=== PATIENT | male | born 2000 | race Two or more races ===

== ENCOUNTER 2018-07-24 01:17 | Observation (INO) | payer BC ==
[2018-07-24] MEDS ORDERED: Thiamine 100 MG in Sodium Chloride 0.9% 100 ML IV ONE (01:52)
--- NOTE | 2018-07-24 01:52 | EDM.PDOC ---
ED HPI GENERAL MEDICAL PROBLEM - General Stated Complaint: INTOXICATION Time Seen by Provider: 07/24/18 01:48 Source of Information: Reports: Other (Friend) History Limitations: Reports: Altered Mental Status - History of Present Illness INITIAL COMMENTS - FREE TEXT/NARRATIVE: 18-year-old male that was brought in by ambulance after he was found passed out in college. He was apparently visiting a friend, and took an abnormal amount of tequila and beer, more than usual,passing out in the process. The EMT report that he was intermittently combative en route. There is no report of any drug use. According to the friend, skies typically healthy with no active medical problems. - Related Data Allergies Allergy/AdvReac Type Severity Reaction Status Date / Time Unable to Assess Allergy Unverified 07/24/18 03:46 Home Meds: Home Meds . [Unable to Verify Home Med List] 07/24/18 [History] ED ROS GENERAL - Review of Systems Review Of Systems: ROS reveals no pertinent complaints other than HPI. - Physical Exam Exam: See Below Exam Limited By: Altered Mental Status General Appearance: Obtunded Eye Exam: Bilateral Eye: PERRL (pin point) Ears: Normal External Exam Nose: Normal Inspection, Normal Mucosa, No Blood Throat/Mouth: Normal Inspection, Normal Lips, Normal Teeth, Normal Gums, Normal Oropharynx, Normal Voice, No Airway Compromise Head Exam: Atraumatic, Normocephalic Neck: Normal Inspection Respiratory/Chest: No Respiratory Distress Cardiovascular: Normal Peripheral Pulses GI/Abdominal: Normal Bowel Sounds Course - Vital Signs Last Recorded V/S: Last Vital Signs Temp 97.1 F 07/24/18 02:50 Pulse 83 07/24/18 02:30 Resp 17 07/24/18 06:00 BP 103/49 L 07/24/18 06:00 Pulse Ox 96 07/24/18 06:00 - Orders/Labs/Meds Orders: Medication Orders Sodium Chloride (Normal Saline) 1,000 mls @ 125 mls/hr IV ASDIRECTED SUNDAR Last Admin: 07/24/18 04:15 Dose: 125 mls/hr Lorazepam (Ativan) 1 mg IVPUSH Q4H PRN PRN Reason: Agitation Labs: Laboratory Tests 07/24/18 07/24/18 07/24/18 Range/Units 01:30 01:30 01:30 WBC 6.8 (4.5-12.0) X10-3/uL RBC 5.03 (4.30-5.75) x10(6)uL Hgb 14.1 (11.5-15.5) g/dL Hct 43.4 (30.0-51.3) % MCV 86.3 (80-96) fL MCH 28.0 (27.7-33.6) pg MCHC 32.4 (32.2-35.4) g/dL RDW 12.8 (11.5-15.5) % Plt Count 314 (125-369) X10(3)uL MPV 7.5 (7.4-10.4) fL Neut % (Auto) 58.3 (46-82) % Lymph % (Auto) 32.4 (13-37) % Bradley % (Auto) 8.0 (4-12) % Eos % (Auto) 1 (1.0-5.0) % Baso % (Auto) 0 (0-2) % Neut # (Auto) 4.0 (1.6-8.3) # Lymph # (Auto) 2.2 (0.6-5.0) # Bradley # (Auto) 0.5 (0.0-1.3) # Eos # (Auto) 0.1 (0.0-0.8) # Baso # (Auto) 0.0 (0.0-0.2) # Sodium 137 (135-145) mmol/L Potassium 3.4 L (3.5-5.3) mmol/L Chloride 103 (100-110) mmol/L Carbon Dioxide 25 (21-32) mmol/L BUN 10 (7-18) mg/dL Creatinine 0.8 (0.70-1.30) mg/dL Est Cr Clr Drug Dosing 176.04 mL/min Estimated GFR (MDRD) > 60 (>60) BUN/Creatinine Ratio 12.5 (9-20) Glucose 146 H (80-116) mg/dL Calcium 8.5 L (8.6-10.2) mg/dL Magnesium 1.8 (1.8-2.5) mg/dL Total Bilirubin 0.2 (0.1-1.3) mg/dL AST 26 H (5-25) IU/L ALT 69 H (12-36) U/L Alkaline Phosphatase 74 (56-112) IU/L Creatine Kinase 365 H* (60-160) IU/L Total Protein 7.2 (6.0-8.0) g/dL Albumin 3.8 (3.5-5.2) g/dL Globulin 3.4 g/dL Albumin/Globulin Ratio 1.1 Ethyl Alcohol 0.25 H* (<0.03) % Meds: Medications Generic Name Dose Route Start Last Admin Trade Name Freq PRN Reason Stop Dose Admin Sodium Chloride 1,000 mls @ 125 mls/hr 07/24/18 02:00 07/24/18 04:15 Normal Saline IV 125 mls/hr ASDIRECTED SUNDAR Administration Lorazepam 1 mg 07/24/18 02:10 Ativan IVPUSH Q4H PRN Agitation Discontinued Medications Generic Name Dose Route Start Last Admin Trade Name Freq PRN Reason Stop Dose Admin Thiamine HCl 100 mg/ Sodium 101 mls @ 202 mls/hr 07/24/18 01:52 07/24/18 02: 27 Chloride IV 07/24/18 01:53 202 mls/hr ONETIME ONE Administration Sodium Chloride 1,000 mls @ 999 mls/hr 07/24/18 02:00 07/24/18 02:00 Normal Saline IV 07/24/18 03:00 999 mls/hr ONETIME ONE Administration Sodium Chloride 1,000 mls @ 999 mls/hr 07/24/18 03:14 07/24/18 03:15 Normal Saline IV 07/24/18 04:14 999 mls/hr ONETIME ONE Administration Departure - Departure Time of Disposition: 02:08 Disposition: Refer to Observation Clinical Impression: Alcohol intoxication Qualifiers: Complication of substance-induced condition: with unspecified complication Qualified Code(s): F10.929 - Alcohol use, unspecified with intoxication, unspecified - Discharge Information - Problem List & Annotations (1) Alcohol intoxication SNOMED Code(s): 18458781 Code(s): F10.929 - ALCOHOL USE, UNSPECIFIED WITH INTOXICATION, UNSPECIFIED Status: Acute Current Visit: Yes Qualifiers: Complication of substance-induced condition: with unspecified complication Qualified Code(s): F10.929 - Alcohol use, unspecified with intoxication, unspecified - Problem List Review Problem List Initiated/Reviewed/Updated: Yes - Assessment/Plan Plan: Admit,observation. Obtain CT of the morning of the head. Urine drug screen. Use lorazepam when necessary for agitation. Replace fluids, for dehydration and hypovolemia.
[2018-07-24] MEDS ORDERED: Sodium Chloride 0.9% 1,000 ML IV ONE ×2 (02:00→03:14)
[2018-07-24] MEDS ORDERED: Sodium Chloride 0.9% 1,000 ML IV SCH (02:00)
[2018-07-24] MEDS ORDERED: LORazepam 2 MG/ML SDV IVPUSH PRN (02:10)
--- NOTE | 2018-07-24 12:08 | DISCH ---
DISCHARGE DATE: 07/24/2018 HOSPITAL COURSE: Jayne Bledsoe is a 18-year-old, male, admitted with acute alcohol intoxication last evening. Better this morning. Clear, orientated and appropriate. Chest is clear. Heart is regular. Abdomen is benign. ASSESSMENT: Acute alcohol intoxication. PLAN: Alcohol poison toxin, illicit drug use not in place, implications for health and well being, and again age 18. Taken under advisement. Counseling services to be considered. /[id number] /RAUDEL
--- NOTE | 2018-07-24 12:35 | HP ---
ADMISSION DATE: 07/24/2018 CHIEF COMPLAINT: Alcohol intoxication. HISTORY OF PRESENT ILLNESS: Jayne Bledsoe is a 18-year-old, male, [place] resident, who was at [facility] [employer] over the weekend visiting friends. At 5 p.m. began to ingest alcohol with great quantity, Tequila, beer, and something called "Four Titus." Consumed to great excess, went from room to room, was found collapsed on the floor, reasonably unresponsive, EMS was contacted and was transferred. Was moderately disruptive and belligerent, was hospitalized for that regard. No suspicion for illicit drug use prior too. Was seen in the emergency room by Dr. Mcbride, appropriate diagnostic studies were performed. CBC unremarkable, electrolytes were satisfactory. Mildly elevated liver enzymes, AST and ALT. Creatine kinase 365, and urine toxicology negative, total blood alcohol 0.25. DAILY MEDICATIONS: None. ALLERGIES: Allergic to Augmentin with diarrhea and rash. PAST MEDICAL HISTORY: Significant for tonsillectomy as a child. 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 Mild weakness persists. No other complicating health concerns, operative procedures, chronic disease. SOCIAL HISTORY: Single. Works at [employer] in [place]. Nonsmoker. Alcohol as noted. No illicit drug use. FAMILY HISTORY: Dad 40, mom 43. Three brothers, two sisters, all in good health. No early heart disease, diabetes mellitus, or inheritable cancers. REVIEW OF SYSTEMS: CONSTITUTIONAL: A little bit "hung over" this morning. HEENT: Routinely sees well, hears well, intact dentition. ABDOMEN: Bowels have been fine. : Bladder has been fine. No blood in stools. No blood in urine. RESPIRATORY: Complicated cough, respiratory difficulty, chest pain, joint pain of consequence, skin rash, mood has been stable. PHYSICAL EXAMINATION: VITAL SIGNS: 36.3, 93 is the pulse, 113/56, 18, and 97%. GENERAL: A young man, cooperative, conversant, friend in the room. The patient was oriented to time, place, and person. HEENT: Funduscopic benign. Conjunctivae clear. Bright tympanic membranes. Clear nasal discharge. Mouth and oropharynx clear. Bright dentition. NECK: Benign. Thyroid small. No adenopathy. CHEST: Clear in all lung jacobs. No adventitious sounds. HEART: On auscultation, no ectopy or murmur. BREASTS: Normal male breasts. ABDOMEN: Benign. A bit rotund. No hepatosplenomegaly. : Normal male genitalia. Hernia is absent. Testes descended. RECTAL: Deferred. EXTREMITIES: Well perfused. LABORATORY STUDIES: White count 6800, hemoglobin 14.1, hematocrit 43.8, normal indices. Electrolytes, mildly decreased potassium at 3.4, random glucose 146, calcium 8.5, AST 26, ALT 69, CPK 365. Urine, negative. Acute alcohol intoxication significant, 0.25. PLAN: Patient looks well this morning. We will discontinue IV, advanced diet, close observation. All is well, discharge today. Encourage alcohol not to be part of his life, given circumstances, outcome, and again only age 18. Taken under advisement. /[id number] ALISA/RAUDEL
== END 2018-07-24 10:30 | disposition home or self-care (01) ==
LOC: FB.ED 01:17 → FB.ICU 01:52
PROVIDERS: ADMIT Family Medicine; ATTEND Family Medicine
DX: F10.129 Alcohol abuse with intoxication, unspecified (principal)
CPT/HCPCS: 36415; 80053; 80305; 82550; 83735; 85025; 96374; 99285; G0480; J3411; J7030